=== PATIENT | female | born 1960 | race Asian ===

== ENCOUNTER 2018-11-15 14:28 | Outpatient (REF) | payer MEDICAID, SELFPAY ==
--- NOTE | 2018-11-15 13:00 | PAPFT_PTH ---
PATIENT: Inessa Cassidy LOC: [facility] U#:[id number] AGE/SX: 58/F ROOM: RE11/15/[address]: JAJA Brewer : 1960 BED: DIS: 11/15/2018 SPEC #: [id number] RECD: 11/15/18 17:39 STATUS: DIONI REKalee #: [id number] GIORGI: 11/15/18 13:[address]: Ana Borrego DEPT: [facility] Cytology RECD BY: Laine Carroll Tissues: 1 - CX/ENDOCX FOR PAP SMEARS Procedures: PAP THIN PREP/[facility]VM Screening Comments: [id number]
== END 2018-11-15 14:48 ==
LOC: LBN 14:28
PROVIDERS: PCP Nurse Practitioner Family; Visit Provider Nurse Practitioner Family
DX: Z12.4 Encounter for screening for malignant neoplasm of cervix (principal)
CPT/HCPCS: 88142

== ENCOUNTER 2018-11-22 01:28 | Outpatient (CLI) | payer MEDICAID, SELFPAY ==
--- NOTE | 2018-11-22 13:00 | DI.MAMMO_ITS ---
SYMPTOM/DIAGNOSIS: SCREENING, Z12.31 MAMMOGRAMS: Mammograms were interpreted according to the usual protocol including computer analysis with CAD system, tomosynthesis and C view imaging. Comparison is made with exams from [id number]. The breasts are composed of heterogeneously dense fibroglandular tissue, breast density, Category C. No suspicious masses or suspicious microcalcifications are seen. There has been no significant change. IMPRESSION: Category 1C, negative mammogram. Yearly screening mammography is recommended. [facility] ASSESSMENT OF FINDINGS: Negative. Category 1. Patient will receive a letter notifying them of these results. Bi-RADS category C. The breasts are heterogeneously dense, which may obscure small masses.
== END 2018-11-22 01:48 ==
PROVIDERS: PCP Nurse Practitioner Family; Visit Provider Nurse Practitioner Family
DX: Z12.31 Encounter for screening mammogram for malignant neoplasm of breast (principal)
CPT/HCPCS: 77063; 77067

== ENCOUNTER 2018-12-01 01:46 | Outpatient (CLI) | payer MEDICAID, SELFPAY ==
--- NOTE | 2018-12-01 13:42 | DI.CT_ITS ---
SYMPTOMS/DIAGNOSIS: F/U INCIDENTAL 1 CM NODULE, LEFT LOWER LOBE; NONSMOKER CHEST CT: A noncontrast enhanced examination was carried out. When compared with the previous examination dating back to 03/20/2017, again noted is a left lower lobe nodule, which is unchanged in size, measuring approximately 1 cm. No new nodules are identified. There is no infiltrate. There is no evidence of a pleural effusion. There is no evidence of hilar or mediastinal adenopathy. The heart is top limits of normal in size. There is no pericardial effusion. The unopacified aorta appears unremarkable. The visualized structures in the upper abdomen down to the level of the renal pedicles appear unremarkable. No significant bony abnormality is appreciated. SUMMARY: The left lower lobe nodule is stable when compared with the previous images, the most recent CT being 03/20/2017.
== END 2018-12-01 02:06 ==
PROVIDERS: PCP Nurse Practitioner Family; Visit Provider Nurse Practitioner
DX: R91.1 Solitary pulmonary nodule (principal)
CPT/HCPCS: 71250

== ENCOUNTER 2019-09-28 11:24 | Outpatient (REF) | payer MEDICAID, SELFPAY ==
[2019-09-28 19:52] LABS: ALT 35 U/L (14-59); AST 24 U/L (15-37); Alkaline Phosphatase 63 U/L (46-116); Anion Gap 8.5 mmol/L (3-11); BUN 10 mg/dL (7-18); Bilirubin, Total 0.7 mg/dL (0.2-1.0); C-Reactive Protein 0.09 mg/dL (0.0-0.3); CO2 25.5 mmol/L (21.0-32.0); CREATININE 0.61 mg/dL (0.55-1.02); Calcium 8.5 mg/dL (8.5-10.1); Chloride 105 mmol/L (98-107); Glucose 88 mg/dL (74-106); Potassium 4.2 mmol/L (3.5-5.1); Sodium 139 mmol/L (136-145); Total Protein 7.5 g/dL (6.4-8.2)
[2019-09-28 22:23] LABS: ESR 17 mm/hr (0-30)
== END 2019-09-28 11:44 ==
LOC: NCHCN 11:24
PROVIDERS: PCP Nurse Practitioner; Visit Provider Nurse Practitioner
DX: M25.50 Pain in unspecified joint (principal)
CPT/HCPCS: 80053; 85652; 86140

== ENCOUNTER 2019-10-18 00:59 | Outpatient (CLI) | payer MEDICAID, SELFPAY ==
--- NOTE | 2019-10-18 08:10 | DI.CT_ITS ---
EXAM: CT CHEST WO CLINICAL HISTORY: F/U LLL 1 CM NODULE, R91.8 TECHNIQUE: Noncontrast. COMPARISON: CHEST 2 VIEWS PA,LAT from 03/20/2017 FINDINGS: There has been no change in the circumscribed nodule at the left lower lobe. It measures near water density and did not show enhancement on previous exams. There has been no change in size when compare d with exam back to 2017. The findings are consistent with benign disease. No new nodules are seen. T here are no infiltrates, effusions or evidence of interstitial change or emphysematous change. The he art size is normal. There is no adenopathy. Visualized portions of the upper abdomen are unremarkable . IMPRESSION: Stable, benign, low-density nodule in the left lower lobe. No new abnormalities are seen.
== END 2019-10-18 01:19 ==
PROVIDERS: PCP Nurse Practitioner; Visit Provider Nurse Practitioner
DX: R91.1 Solitary pulmonary nodule (principal)
CPT/HCPCS: 71250

== ENCOUNTER 2019-12-05 14:08 | Outpatient (REF) | payer MEDICAID, SELFPAY ==
--- NOTE | 2019-12-05 13:30 | PAPFT_PTH ---
PATIENT: Inessa Cassidy LOC: [facility] U#:[id number] AGE/SX: 59/F ROOM: RE12/05/[address]: JAJA Brewer : 1960 BED: DIS: 12/05/2019 SPEC #: [id number] RECD: 12/05/19 17:42 STATUS: DIONI REKalee #: [id number] GIORGI: 12/05/19 13:[address]: Ana Borrego DEPT: [facility] Cytology RECD BY: Laine Carroll ENTERED: 12/05/19 17:42 SP TYPE: PAPFT OTHR DR: Keren Otero Tissues: 1 - CX/ENDOCX FOR PAP SMEARS Procedures: PAP THIN PREP/UVM Screening HPV DNA PROBE Comments: [id number]
== END 2019-12-05 14:28 ==
LOC: LBN 14:08
PROVIDERS: PCP Nurse Practitioner; Visit Provider Nurse Practitioner Family
DX: Z12.4 Encounter for screening for malignant neoplasm of cervix (principal); Z11.51 Encounter for screening for human papillomavirus (HPV)
CPT/HCPCS: 88142; 87624

== ENCOUNTER 2020-01-04 01:17 | Outpatient (CLI) | payer MEDICAID, SELFPAY ==
--- NOTE | 2020-01-04 12:11 | DI.MAMMO_ITS ---
EXAM: MAMMO SCREENING CLINICAL HISTORY: screening TECHNIQUE: Mammograms were interpreted according to the usual protocol including computer analysis w [employer] CAD system, tomosynthesis and C-view imaging. COMPARISON: 2009 through 2018 FINDINGS: The breasts are composed of heterogeneously dense fibroglandular densities, Breast Density category C . No suspicious masses or suspicious microcalcifications are seen. No skin thickening or abnormal axillary lymph nodes are seen. There has been no significant change from prior exams. IMPRESSION: BIRADS Category 1, negative mammogram. Yearly screening mammography is recommended. BREAST DENSITY: The mammogram demonstrates the patient's breast tissue is dense. Dense breast tissue is very common and is not abnormal but dense breast tissue can make it harder to find cancer on a ma mmogram. Also, dense breast tissue may increase breast cancer risk. This information about the result of the mammogram report was provided to the patient to raise their awareness. Use this report when y ou speak with the patient about their risks for breast cancer, which includes their family history. A t that time, you may recommend additional screening tests (Ultrasound or MRI) as they might be useful based on their risk. A negative radiographic report should not delay biopsy if a dominant or clinically suspicious mass is present. Up to ten percent of cancers are not identified on mammography. A negative report may reinforce clinical impression. Adenosis and dense breasts may obscure an underlying neoplasm. False positive reports average 6 to 10%.
== END 2020-01-04 01:37 ==
PROVIDERS: PCP Nurse Practitioner; Visit Provider Nurse Practitioner Family
DX: Z12.31 Encounter for screening mammogram for malignant neoplasm of breast (principal)
CPT/HCPCS: 77063; 77067

== ENCOUNTER 2020-03-28 10:11 | Outpatient (CLI) | payer MEDICAID, SELFPAY ==
--- NOTE | 2020-03-28 10:39 | DI.RAD_ITS ---
EXAM: XR SHOULDER RT COMPLETE 2+V CLINICAL HISTORY: PAIN IN RT SHOULDER M25.511. TECHNIQUE: 2D digital imaging was performed. COMPARISON: No exams were available for comparison FINDINGS: BONES: No acute fracture is present. No bony destructive lesion is seen. Mild spurring is seen at the lateral acromion. JOINTS: No dislocation present. SOFT TISSUE: Normal. IMPRESSION: No acute abnormality of the right shoulder. DATA REPOSITORY: RADIATION DOSE DELIVERED:
== END 2020-03-28 10:31 ==
PROVIDERS: PCP Nurse Practitioner; Visit Provider Nurse Practitioner
DX: M25.511 Pain in right shoulder (principal)
CPT/HCPCS: 73030

== ENCOUNTER 2020-10-16 20:30 | Outpatient (REF) | payer MEDICAID, SELFPAY ==
[2020-10-16 18:41] LABS: TSH (W/Ref FT4) 4.71 uIU/mL (0.36-3.74)
[2020-10-16 19:13] LABS: FREE T4 0.93 ng/dL (0.76-1.46)
== END 2020-10-16 20:50 ==
LOC: NCHCN 20:30
PROVIDERS: PCP Nurse Practitioner; Visit Provider Nurse Practitioner Family
DX: R94.6 Abnormal results of thyroid function studies (principal)
CPT/HCPCS: 84439; 84443

== ENCOUNTER 2020-12-06 13:23 | Outpatient (REF) | payer MEDICAID, SELFPAY ==
--- NOTE | 2020-12-06 13:00 | PAPFT_PTH ---
PATIENT: Inessa Cassidy LOC: [facility] U#:[id number] AGE/SX: 60/F ROOM: RE12/06/[address]: JAJA Brewer : 1960 BED: DIS: 12/06/2020 SPEC #: [id number] RECD: 12/06/20 16:25 STATUS: DIONI LOW #: [id number] GIORGI: 12/06/20 13:[address]: Ana Borrego DEPT: [facility] Cytology RECD BY: Laine Carroll ENTERED: 12/06/20 16:25 SP TYPE: PAPFT OTHR DR: Keren Otero Tissues: 1 - CX/ENDOCX FOR PAP SMEARS Procedures: PAP THIN PREP/UVM Screening HPV DNA PROBE Comments: [id number]
== END 2020-12-06 13:43 ==
LOC: LBN 13:23
PROVIDERS: PCP Nurse Practitioner; Visit Provider Nurse Practitioner Family
DX: Z12.4 Encounter for screening for malignant neoplasm of cervix (principal); Z11.51 Encounter for screening for human papillomavirus (HPV)
CPT/HCPCS: 88142; 87624

== ENCOUNTER 2020-12-11 01:01 | Outpatient (CLI) | payer MEDICAID, SELFPAY ==
--- NOTE | 2020-12-11 14:30 | DI.MRI_ITS ---
EXAM: MR UPPER JOINT RT WO CLINICAL HISTORY: Traumatic onset, failed nonop,bursitits, tendonitis, m75.51,m75.21. TECHNIQUE: Multiplanar multisequence MRI was performed. COMPARISON: CR XR SHOULDER RT COMPLETE 2+V from 03/28/2020 FINDINGS: BONES: There is no fracture or contusion pattern. Tiny subchondral cysts are seen in the posterior as pect of the humeral head. JOINTS: Mild degenerative changes are seen at the acromioclavicular joint. The glenohumeral joint is normal. TENDONS: Supraspinatus: There is thickening of the supraspinatus tendon consistent with tendinosis. There is hyperintense signal seen within the substance of the supraspinatus tendon and on its bursal surface c onsistent with a partial tear. Infraspinatus: Unremarkable. Subscapularis: There is thickening of the subscapularis tendon consistent with tendinosis. Teres Minor: Unremarkable. Biceps and Vista: Thickening of the biceps tendon is noted consistent with tendinosis. MUSCLES: Unremarkable. GLENOID LABRUM: Unremarkable on this noncontrast examination. SOFT TISSUES: Unremarkable. LIGAMENTS: The coracoclavicular ligament is unremarkable. OTHER: There is a small amount of fluid in the subacromial subdeltoid bursa. IMPRESSION: 1. Findings suggestive of a partial supraspinatus tendon tear. 2. Tendinosis of the subscapularis, biceps tendon and supraspinatus tendons. 3. Degenerative changes of the acromioclavicular joint. 4. Small amount of fluid in the subacromial subdeltoid bursa. DATA REPOSITORY:
== END 2020-12-11 01:02 | disposition home or self-care (01) ==
LOC: DI 01:02
PROVIDERS: PCP Nurse Practitioner; Visit Provider Student in an Organized Health Care Education/Training Program
DX: M75.51 Bursitis of right shoulder (principal); M19.011 Primary osteoarthritis, right shoulder; M25.411 Effusion, right shoulder
CPT/HCPCS: 73221

== ENCOUNTER 2021-01-07 02:12 | Outpatient (CLI) | payer MEDICAID, SELFPAY ==
--- NOTE | 2021-01-07 07:15 | DI.MAMMO_ITS ---
EXAM: MG MAMMO SCREENING CLINICAL HISTORY: screening,Z12.39 TECHNIQUE: Bilateral full field digital CC and MLO mammographic images were obtained with 3D tomosyn thesis and utilizing computer aided detection (CAD). COMPARISON: Available for comparison. FINDINGS: Masses/Architectural Distortion: None seen. Microcalcifications: No suspicious pleomorphic-type are seen. Skin Thickening/Nipple Retraction: None. IMPRESSION: 1. No significant interval change with no specific features of malignancy noted. 2. Unless there is more urgent need, screening mammography is recommended, as per [employer] guidelines. BI-RADS Category 1 - Negative Breast Density - Category C - Heterogeneously dense Breast density category C or D implies that the patient has dense breast tissue. Dense breast tissue is very common and is not abnormal but dense breast tissue can make it harder to find cancer on a ma mmogram. Also, dense breast tissue may increase their breast cancer risk. This information about the result of the mammogram report was provided to the patient to raise their awareness. Use this report when you speak with the patient about their risks for breast cancer, which includes their family hist ory. At that time, you may recommend for more screening tests (Ultrasound or MRI) as they might be us eful based on their risk. A negative radiographic report should not delay biopsy if a dominant or clinically suspicious mass is present. Up to ten percent of cancers are not identified on mammography. A negative report may reinforce clinical impression. Adenosis and dense breasts may obscure an underlying neoplasm. False positive reports average 6 to 10%. Patient will receive a letter notifying them of these results.
== END 2021-01-07 02:32 ==
PROVIDERS: PCP Nurse Practitioner; Visit Provider Nurse Practitioner Family
DX: Z12.31 Encounter for screening mammogram for malignant neoplasm of breast (principal)
CPT/HCPCS: 77063; 77067

== ENCOUNTER 2021-10-18 19:17 | Outpatient (REF) | payer MEDICAID, SELFPAY ==
[2021-10-18 19:27] LABS: Abs Immature Grans 0.01 10^3/uL (0.0-0.06); Absolute Basophil Count 0.04 10^3/uL (0.0-0.2); Absolute Eosinophil Count 0.11 10^3/uL (0.0-0.7); Absolute Lymphocyte Count 2.47 10^3/uL (1.2-3.4); Absolute Monocyte Count 0.59 10^3/uL (0.1-0.8); Absolute Neutrophil Count 3.77 10^3/uL (1.2-6.7); Basophils % 0.6; Eosinophils % 1.6; HCT 40.8 % (36.0-46.0); Immature Grans % 0.1; Lymphocytes % 35.3; MCH 29.4 pg (27.0-33.0); MCHC 31.9 % (32.0-36.0); MCV 92.3 fL (80-95); Monocytes % 8.4; Nucleated RBC 0 %; Platelet Count 380 10^3/uL (130-400); RBC 4.42 10^6/uL (3.93-5.22); RDW 12.5 % (11.7-14.6); RDW-SD 42.6 fL; WBC 6.99 10^3/uL (4.4-10.8)
[2021-10-18 19:43] LABS: CREATININE 0.7 mg/dL (0.55-1.02); TSH (W/Ref FT4) 2.24 uIU/mL (0.36-3.74)
[2021-10-18 20:12] LABS: Hemoglobin A1C 5.4 % (<5.7)
[2021-10-21 10:12] LABS: Hepatitis B Surface Ag Negative (Negative)
[2021-10-21 10:37] LABS: Hepatitis C Ab w Rflx HCV PCR Negative (Negative)
== END 2021-10-18 19:18 | disposition home or self-care (01) ==
LOC: NCHCN 19:17
PROVIDERS: PCP Nurse Practitioner; Visit Provider Family Medicine
DX: R94.6 Abnormal results of thyroid function studies (principal); Z00.00 Encounter for general adult medical examination without abnormal findings; R07.81 Pleurodynia; Z11.59 Encounter for screening for other viral diseases
CPT/HCPCS: 86803; 87340; 82565; 83036; 84443; 85025

== ENCOUNTER 2022-01-07 00:39 | Outpatient (CLI) | payer MEDICAID, SELFPAY ==
--- NOTE | 2022-01-07 14:26 | DI.CT_ITS ---
Exam(s) CT CHEST WO EXAM: CT CHEST WO CLINICAL HISTORY: PLEURITIC CHEST PAIN, R07.81,F/U LUNG NODULE,R91.8. TECHNIQUE: Imaging protocol: Axial computed tomography images were obtained and coronal and sagittal reformatted images were created and reviewed. COMPARISON: CT CT CHEST WO from 10/18/2019 FINDINGS: Tracheobronchial tree: Patent where visualized. Pulmonary parenchyma: No focal consolidation. There is a stable 1 cm hypodense nodule in the left lo wer lobe. No new pulmonary nodules are present. No architectural distortion. Mediastinum and Marzena: No dominant adenopathy or fluid collection. The esophagus is unremarkable. Thyroid gland: Unremarkable. Pleura: No effusion or pneumothorax. Heart: The heart is not dilated. No coronary artery calcifications are seen. No pericardial effusion. Aorta: Thoracic aorta non-dilated. Upper abdomen: Unremarkable. Lymph nodes: Within normal limits. Soft tissues: Unremarkable. Bones:Within normal limits for the patient's age. IMPRESSION: Stable 1 cm left lower lobe nodule. This is unchanged dating back to 03/20/2017. RADIATION DOSE DELIVERED: 515.19mGy.cm Total DLP 515.19mGy.cm Total DLP DATA REPOSITORY: All CT scans at this facility are submitted to the National Radiology Data Registry (NRDR) Dose Index Registry (DIR) with the [employer] (A[employer]). RADIATION OPTIMIZATION: All CT scans at this facility use at least one of these dose optimization te chniques: automated exposure control; mA and/or kV adjustment per patient size (includes targeted exa ms where dose is matched to clinical indication); or iterative reconstruction.
== END 2022-01-07 00:59 ==
PROVIDERS: PCP Nurse Practitioner; Visit Provider Family Medicine
DX: R07.81 Pleurodynia (principal); R91.1 Solitary pulmonary nodule
CPT/HCPCS: 71250

== ENCOUNTER 2022-07-17 22:30 | Outpatient (REF) | payer MEDICAID, SELFPAY | END 2022-07-17 22:31 | disposition home or self-care (01) | LOC: LBN 22:30 | PROVIDERS: PCP Nurse Practitioner; Visit Provider Nurse Practitioner Family | DX: U07.1 COVID-19 (principal) | CPT/HCPCS: 87086 ==

== ENCOUNTER → 2022-09-03 02:14 | Outpatient (CLI) | payer MEDICAID, SELFPAY ==
--- NOTE | 2022-09-03 12:16 | DI.MAMMO_ITS ---
Exam(s) MAMMO SCREENING EXAM: MAMMO SCREENING CLINICAL HISTORY: screening,Z12.39 TECHNIQUE: Mammograms were interpreted according to the usual protocol including computer analysis w [employer] CAD system, tomosynthesis and C-view imaging. COMPARISON: FINDINGS: Breasts are extremely dense. No dominant mass or clumped microcalcification is identified in either breast. Current examination is compared with previous examinations including January 2021 and there is increased prominence of a focal area of asymmetric density or nodularity projected in the retroareol ar portion of the right breast on CC view only. Additional mammographic views of this area are reque sted to include CC spot compression views of the right breast. No other significant change seen. IMPRESSION: Additional mammographic views of the right breast requested as described above. Breast ultrasound re commended as well. BI-RADS Category 0 - Assessment Incomplete: Need additional imaging evaluation Breast Density - Category D - Extremely dense
== END ==
PROVIDERS: PCP Nurse Practitioner; Visit Provider Family Medicine
DX: Z12.31 Encounter for screening mammogram for malignant neoplasm of breast (principal); R92.8 Other abnormal and inconclusive findings on diagnostic imaging of breast
CPT/HCPCS: 77063; 77067

== ENCOUNTER → 2022-09-18 02:33 | Outpatient (CLI) | payer MEDICAID, SELFPAY ==
--- NOTE | 2022-09-18 | DI.US_ITS ---
Exam(s) MG MAMMO SCREEN CALL BACK UNI US BREAST RT LIMITED EXAM: MG MAMMO SCREEN CALL BACK UNI and U/S breast RT limited CLINICAL HISTORY: F/U MAMMO, PROMINENCE OF ASYMMETRIC DENSITY,NODULARITY,R92.8. TECHNIQUE: Craniocaudal and mediolateral oblique Full Field Digital Mammography views of the right b reast with Computer Aided Diagnosis followed by Tomosynthesis and right breast ultrasound. COMPARISON: Comparison is made with prior examinations. FINDINGS: Mammography/Tomosynthesis: Masses/Architectural Distortion: None seen. Microcalcifictions: No suspicious pleomorphic-type are seen. Skin Thickening/Nipple Retraction: None. Limited right breast US: The upper inner and lower inner quadrants were evaluated sonographically. Echotexture: Normal appearance of the glandular tissue. Shadowing: No suspicious foci. Cyst: None. Solid lesions: None seen. Ductal dilation: None. IMPRESSION: 1. No evidence of malignancy is noted. 2. A six-month follow-up right mammogram is recommended for re-evaluation. 3. The findings were discussed with the patient on the date of the examination. BI-RADS Category 3 - 6 month - Probably Benign Finding: Recommend follow-up imaging in 6 months Breast Density - Category D - Extremely dense Breast density Category C or D implies that the patient has dense breast tissue. Dense breast tissue can make it harder to find cancer on a mammogram. Dense breast tissue is also associated with an incr eased risk of breast cancer. This information about the result of the mammogram report was provided to the patient to raise their awareness. Use this report when you speak with the patient about their risks for breast cancer, which includes their family history. At that time, you may recommend additional screening tests (Ultrasoun d or MRI) as these tests may add significant information. A negative radiographic report should not delay biopsy if a dominant or clinically suspicious mass is present. Up to ten percent of cancers are not identified on mammography. A negative report may reinforce clinical impression. Adenosis and dense breasts may obscure an underlying neoplasm. False positive reports average 6 to 10%. Patient will receive a letter notifying them of these results.
== END ==
PROVIDERS: PCP Physician Assistant Medical; Visit Provider Family Medicine
DX: Z12.31 Encounter for screening mammogram for malignant neoplasm of breast (principal); R92.8 Other abnormal and inconclusive findings on diagnostic imaging of breast
CPT/HCPCS: 76642; 77063; 77067

== ENCOUNTER 2022-11-26 16:55 | Emergency (ER) | payer MEDICAID, SELFPAY ==
--- NOTE | 2022-11-26 16:45 | RT.EKG_ITS ---
APPROVED REPORT Exam: Resting ECG Reason for Exam: CHEST PAIN Patient Location: E HR:61 bpm ECG Measurements Heart Rate 61 AXIS [place] 186 P 67 QRSd 91 QRS 14 QT 397 T -3 QTc 400 Conclusion Sinus rhythm...normal P axis, V-rate 60- 99 Low voltage, precordial leads...precordial leads <1.0mV normal sinus rhythm, normal axis, normal intervals, non ischemic
[2022-11-26 17:02] VITALS: BP 140/57; PULSE 67; RESP 18; TEMP 36.7; O2SAT 98
--- NOTE | 2022-11-26 17:15 | DI.RAD_ITS ---
Exam(s) XR CHEST 2V PA LATERAL EXAM: XR CHEST 2V PA LATERAL CLINICAL HISTORY: chest pain. TECHNIQUE: 2D digital imaging was performed. COMPARISON: CR CHEST 2 VIEWS PA,LAT from 03/20/2017 FINDINGS: 2 views: Heart size is normal. The mediastinum is not widened. Lungs are clear. No infiltrates nor pleural effusions. IMPRESSION: No acute pulmonary findings. DATA REPOSITORY: RADIATION DOSE DELIVERED:
[2022-11-26 17:48] LABS: Abs Immature Grans 0.02 10^3/uL (0.0-0.06); Absolute Basophil Count 0.04 10^3/uL (0.0-0.2); Absolute Lymphocyte Count 2.39 10^3/uL (1.2-3.4); Absolute Neutrophil Count 4.74 10^3/uL (1.2-6.7); Basophils % 0.5; Eosinophils % 1.3; HCT 40.3 % (36.0-46.0); HGB 13.6 g/dL (11.2-15.7); Immature Grans % 0.3; Lymphocytes % 30.3; MCH 30.9 pg (27.0-33.0); MCHC 33.7 % (32.0-36.0); MCV 92 fL (80-95); MPV 9.5 fL (8.0-11.0); Monocytes % 7.6; Platelet Count 336 10^3/uL (130-400); RDW 12.2 % (11.7-14.6); WBC 7.89 10^3/uL (4.4-10.8)
[2022-11-26 18:13] LABS: ALT 26 U/L (14-59); AST 23 U/L (15-37); Albumin 4.5 g/dL (3.4-5.0); Alkaline Phosphatase 66 U/L (46-116); Anion Gap 4.7 mmol/L (3-11); BUN 23 mg/dL (7-18); Bilirubin, Total 0.5 mg/dL (0.2-1.0); CO2 28.3 mmol/L (21.0-32.0); CREATININE 0.8 mg/dL (0.55-1.02); Calcium 9.2 mg/dL (8.5-10.1); Chloride 102 mmol/L (98-107); Glucose 125 mg/dL (74-106); Lipase 123 U/L (73-393); Potassium 3.3 mmol/L (3.5-5.1); Sodium 135 mmol/L (136-145); Total Protein 8.4 g/dL (6.4-8.2); Troponin I < 50 ng/L (<or=60)
[2022-11-26 18:50] LABS: D-Dimer 259 ng/mlFEU (<500)
--- NOTE | 2022-11-26 18:52 | DI.VRAD_ITS ---
PROCEDURE INFORMATION: Exam: XR Chest Exam date and time: 11/26/2022 6:19 PM Age: 62 years old Clinical indication: Other: Chest pain TECHNIQUE: Imaging protocol: Radiologic exam of the chest. Views: 2 views. COMPARISON: CT CHEST WO 01/07/2022 2:23 PM FINDINGS: Lungs: Unremarkable. No consolidation. Pleural spaces: Unremarkable. No pleural effusion. No pneumothorax. Heart/Mediastinum: Unremarkable. No cardiomegaly. Bones/joints: Unremarkable. IMPRESSION: No acute findings. Dictated and Authenticated by: Juan Ventura MD. Ordering:MARTIN Jang MD
[2022-11-26 19:14] VITALS: BP 122/72; PULSE 62; RESP 16; O2SAT 98
[2022-11-26] MEDS: Cyclobenzaprine 10 MG TAB 5 MG PO (20:20)
[2022-11-26] MEDS: Ketorolac 15 MG/ML VIAL IVP (20:21)
--- NOTE | 2022-11-26 22:07 | ED.GENADUL_ITS ---
Discharge Plan Disposition Patient Disposition: Home Condition: Stable Discharge Details Clinical Impression: Atypical chest pain Primary Care Provider: Sindhu Grayson ED Provider: Laine Sheridan Home Meds and New Rx's Prescriptions: New cyclobenzaprine 5 mg tablet 5 mg PO QHS PRNQty: 14 0RF methylprednisolone [Medrol (Jc)] 4 mg tablets,dose pack See Rx Instructions .ROUTE .COMPLEX Qty: 21 0RF Rx Instructions: orally per package directions Continued Daily Multiple 1 EACH tablet 1 tab-cap PO DAILY Fish Oil 1 cap PO DAILY Discharge Instructions Instructions: Chest Pain (ED) Additional Instructions: Please take the prescribed medications as instructed Follow-up with your primary care physician You have an appointment tomorrow, let them know you are still having discomfort You may take Tylenol 650 mg every 6 hours, take the Medrol Dosepak to starting tomorrow, and you may take the Flexeril at night as needed for discomfort Please return earlier should you have new or worsening complaints Referrals: Sindhu Grayson [Primary Care Provider] - 1 day Discharge Data Discharge Date/Time-TO BE ENTERED AT DEPARTURE: 11/26/22 20:37 Medical Decision Making 62-year-old female presents for acute exacerbation of chronic chest pain for which she has been evaluated on several occasions in the past States it is worsening and wakes her from sleep. Denies history of hypertension or hyperlipidemia, tobacco use, or alcohol use Describes the pain is worse when she is moving or lifting water really doing any sort of activity that involves the use of her chest wall muscles Denies any exacerbation with food or fluids Denies any hemoptysis or upper respiratory symptoms Chest x-ray does not show evidence of acute abnormality Diagnostic blood work is reassuring, negative troponin, negative D-dimer, EKG without acute abnormality Reproducible chest wall exam Will place patient on Medrol Dosepak and Flexeril Given Toradol and Flexeril prior to discharge home Will refer back to primary care physician Low suspicion for cardiac etiology of patient's complaints and the negative D- dimer with suspicion for pulmonary embolism clinically especially with out hypoxia, tachypnea, or tachycardia Follow-up appointment actually is scheduled with her primary care physician tomorrow morning and she will keep this appointment return should she have new or worsening complaints Medical Records Medical records reviewed: Yes I reviewed the patient's medical records. Lab Data Lab results reviewed: Yes I reviewed the patient's lab results. HPI General Date/Time Provider Initiated Documentation: 11/26/22 17:05 . HPI Narrative: This 62-year-old female presents with report of chest pain since August. She states it started in close proximity to receiving her COVID-vaccine. She states largely its exacerbated with moving her arms and taking deep breaths. She states she is also had some episodes of palpitations. She denies any fever or chills. She denies any shortness of breath. Denies any calf pain or swelling. Pain is worsening per patient. States its been waking her up at night. She is not been attempting any flab-muq-enrizbo medications. Related Data Home Medications Medication Instructions Recorded Confirmed Fish Oil 1 cap PO DAILY 02/22/13 11/26/22 multivitamin-ferrous 1 tab-cap PO DAILY 02/22/13 11/26/22 fumarate-folic acid 18 mg-400 mcg tablet (Daily Multiple) cyclobenzaprine 5 mg tablet 5 mg PO QHS PRN #14 tabs 11/26/22 methylprednisolone 4 mg tablets in See Rx Instructions PO .COMPLEX 11/26/22 a dose pack (Medrol (Jc)) #21 dose pk Previous Rx's Medication Instructions Recorded cyclobenzaprine 5 mg tablet 5 mg PO QHS PRN #14 tabs 11/26/22 methylprednisolone 4 mg tablets in See Rx Instructions PO .COMPLEX 11/26/22 a dose pack (Medrol (Jc)) #21 dose pk Allergies Allergy/AdvReac Type Severity Reaction Status Date / Time Peaches/Apples Allergy Mild Itchy eyes Uncoded 11/26/22 17:09 General Stated Complaint: Chest Pain VALERIO: 3 Review of Systems All systems reviewed & are unremarkable except as noted in HPI and below PFSH All Active Problems (Updated 11/26/22 @ 20:19 by VAIBHAV Peters) Atypical chest pain (Acute) Rotator cuff tear, right (Acute) Arthritis of right acromioclavicular joint (Acute) Bursitis of shoulder, right (Acute) Tendonitis of long head of biceps brachii of right shoulder (Acute) Personal history of cervical dysplasia (Acute 09/18/15) 2002 DINORA II Medical History Abnormal Pap smear of cervix (~2002) DINORA II Surgical History Colonoscopy - MAC (11/30/17) Social History Smoking/Tobacco Use Status: Never Smoking risk assessment performed?: Yes Alcohol Intake: never Drug use: Never Substance use type: does not use Current gender identity: female Do you feel safe in your relationship?: Yes History History 5 Para 4 Hx # Term Pregnancies Multiple births Hx # Pregnancies Ectopic pregnancies AB induced Hx Number of Living Children AB spontaneous Exam Const General: cooperative, comfortable and no acute distress Orientation: alert and oriented x3 HENMT Head: normal to inspection Mouth: oral mucosae normal Eyes Pupils: PERRL EOM: EOM intact bilaterally Chest Other: Reproducible chest wall tenderness, no rebound or guarding Resp Effort & Inspection: normal respiratory effort Auscultation: clear to auscultation bilaterally Cardio Rate: regular rate Rhythm: regular rhythm GI Inspection: normal to inspection Other: No CVA tenderness, no abdominal bruit or pulsatile mass Skin General skin exam: no rashes or lesions noted Neuro General: patient alert and patient oriented x3 Course Vital Signs Vital signs: Vital Signs Temperature 36.7 C 11/26/22 17:02 Pulse 67 11/26/22 17:02 Respiratory Rate 18 11/26/22 17:02 Blood Pressure 140/57 L 11/26/22 17:02 Pulse Oximetry 98 11/26/22 17:02 Temperature 36.7 C 11/26/22 17:02 Temperature Source Temporal Artery Scan 11/26/22 17:02 Pulse 62 11/26/22 19:14 Respiratory Rate 16 11/26/22 19:14 Respiratory Effort Non-Labored 11/26/22 17:13 Respiratory Depth Normal 11/26/22 17:13 Respiratory Pattern Normal 11/26/22 17:13 Blood Pressure 122/72 11/26/22 19:14 Blood Pressure Position Sitting 11/26/22 17:02 Pulse Oximetry 98 11/26/22 19:14 Oxygen Delivery Method Room Air 11/26/22 19:14 Oxygen Flow Rate 0 11/26/22 19:14 Lab/Test Results Lab/Test Results: Laboratory Tests Range/Units 11/26/22 11/26/22 11/26/22 17:30 17:30 18:13 WBC (4.4-10.8) 10^3/uL 7.89 RBC (3.93-5.22) 10^6/uL 4.40 Hgb (11.2-15.7) g/dL 13.6 Hct (36.0-46.0) % 40.3 MCV (80-95) fL 92 MCH (27.0-33.0) pg 30.9 MCHC (32.0-36.0) % 33.7 RDW (11.7-14.6) % 12.2 Plt Count (130-400) 10^3/uL 336 MPV (8.0-11.0) fL 9.5 Immature Gran % 0.3 Neutrophils % 60.0 Lymphocytes % 30.3 Monocytes % 7.6 Eosinophils % 1.3 Basophils % 0.5 Nucleated RBC % (0.0-0.3) % 0.0 Absolute Neutrophils (1.2-6.7) 10^3/uL 4.74 Absolute Lymphocytes (1.2-3.4) 10^3/uL 2.39 Absolute Monocytes (0.1-0.8) 10^3/uL 0.60 Absolute Eosinophils (0.0-0.7) 10^3/uL 0.10 Absolute Basophils (0.0-0.2) 10^3/uL 0.04 D-Dimer (<500) ng/mlFEU 259 Sodium (136-145) mmol/L 135 L Potassium (3.5-5.1) mmol/L 3.3 L Chloride (98-107) mmol/L 102 Carbon Dioxide (21.0-32.0) mmol/L 28.3 Anion Gap (3-11) mmol/L 4.7 BUN (7-18) mg/dL 23 H Creatinine (0.55-1.02) mg/dL 0.8 Est GFR (CKD-EPI 2020) (mL/min/1.73m2) 84.30 Glucose (74-106) mg/dL 125 H Calcium (8.5-10.1) mg/dL 9.2 Total Bilirubin (0.2-1.0) mg/dL 0.5 AST (15-37) U/L 23 ALT (14-59) U/L 26 Alkaline Phosphatase (46-116) U/L 66 Troponin I (<or=60) ng/L < 50 Total Protein (6.4-8.2) g/dL 8.4 H Albumin (3.4-5.0) g/dL 4.5 Lipase (73-393) U/L 123
== END 2022-11-26 20:37 | disposition home or self-care (01) ==
PROVIDERS: Emergency Provider Physician Assistant; PCP Nurse Practitioner Family
DX: R07.89 Other chest pain (principal)
CPT/HCPCS: 36415; 80053; 83690; 93005; 96374; 99284; 71046; 84484; 85025; 85379; 93010; 99285; J1885

== ENCOUNTER → 2023-09-21 00:48 | Outpatient (CLI) | payer MEDICAID, SELFPAY ==
--- NOTE | 2023-09-21 | DI.MAMMO_ITS ---
Exam(s) US BREAST RT COMPLETE MG MAMMO DIAGNOSTIC BI EXAM: MG MAMMO DIAGNOSTIC BI AND COMPLETE RIGHT BREAST ULTRASOUND CLINICAL HISTORY: DIAGNOSTIC, F/U ABNL MAMMO, R92.8. TECHNIQUE: Both CC and MLO views both breast mammographic images were obtained with 3D tomosynthesis technique and utilizing computer aided detection (CAD). Performed additional spot compression CC vi ew of the right breast. Complete right breast ultrasound was performed including all 4 quadrants as well as the retroareolar region and the right axilla. COMPARISON: Prior mammograms were reviewed, the most recent being September 2022. Prior ultrasound o f September 2022 also reviewed.. FINDINGS: DIAGNOSTIC BILATERAL MAMMOGRAM: The fibroglandular tissue pattern is again noted be moderately dense in both breast. There are no new focal findings seen in the left breast. In the right breast on the CC 3D view there is a dumbbell-shaped asymmetric nodular density measuring 9 x 4 mm located 2 cm in from the nipple, slightly medial of center. We performed an additional spot compression view of this region which lynda dered this finding less concerning. There are no malignant-appearing microcalcification groups in th is region or elsewhere either breast. In the opposite-left breast there is a small benign-appearing nodule noted posteriorly on the MLO vie w which is unchanged from prior mammograms probably benign intramammary lymph node. There is no new architectural distortion or skin thickening-traction. COMPLETE RIGHT BREAST ULTRASOUND: No evidence solid or significant cystic lesions in all 4 quadrants of the right breast. This is furt her evidence that the dumbbell-shaped nodular density seen on today's mammogram (and which compresses out with additional spot compression CC view) is most probably just benign asymmetric tissue as oppo sed to a true nodule. Scanning of the right axilla is negative for adenopathy. IMPRESSION: 1. Benign findings. No evidence of malignancy. Appropriate follow-up is right breast mammogram in 6 months.. The patient was informed of the findings and follow-up recommendations prior to leaving the [facility] today. BI-RADS Category 3 - 6 month - Probably Benign Finding: Recommend follow-up mammography in 6 months Breast Density - Category C - Heterogeneously dense Breast density Category C or D implies that the patient has dense breast tissue. Dense breast tissue can make it harder to find cancer on a mammogram. Dense breast tissue is also associated with an incr eased risk of breast cancer. This information about the result of the mammogram report was provided to the patient to raise their awareness. Use this report when you speak with the patient about their risks for breast cancer, which includes their family history. At that time, you may recommend additional screening tests (Ultrasoun d or MRI) as these tests may add significant information. A negative radiographic report should not delay biopsy if a dominant or clinically suspicious mass is present. Up to ten percent of cancers are not identified on mammography. A negative report may reinforce clinical impression. Adenosis and dense breasts may obscure an underlying neoplasm. False positive reports average 6 to 10%. Patient will receive a letter notifying them of these results.
== END ==
PROVIDERS: PCP Nurse Practitioner Family; Visit Provider Nurse Practitioner Family
DX: Z12.31 Encounter for screening mammogram for malignant neoplasm of breast (principal); R92.8 Other abnormal and inconclusive findings on diagnostic imaging of breast
CPT/HCPCS: 76642; 77062; 77066; G0279

== ENCOUNTER → 2023-10-12 13:52 | Outpatient (CLI) | payer MEDICAID, SELFPAY ==
--- NOTE | 2023-10-12 14:03 | DI.RAD_ITS ---
Exam(s) XR KNEE RT 3V AP,LAT,WHITNEY EXAM: XR KNEE RT 3V AP,LAT,WHITNEY CLINICAL HISTORY: PAIN RT KNEE JOINT, M25.561. TECHNIQUE: 2D digital imaging was performed. Three views. COMPARISON: CR LEFT KNEE 3 VIEW COMPLETE from 09/20/2014 FINDINGS: BONES: No acute fracture is present. No bony destructive lesion is seen. Enthesophyte upper pole of the patella. JOINTS: The knee is normally aligned. No joint effusion is seen. SOFT TISSUE: Small anterior soft tissue calcifications. Calcification in a adjacent to medial femora l condyle. IMPRESSION: No acute abnormality. DATA REPOSITORY: RADIATION DOSE DELIVERED:
== END ==
PROVIDERS: PCP Nurse Practitioner Family; Visit Provider Nurse Practitioner Family
DX: M25.561 Pain in right knee (principal)
CPT/HCPCS: 73562

== ENCOUNTER 2023-10-12 14:27 | Outpatient (REF) | payer MEDICAID, SELFPAY ==
[2023-10-12 14:51] LABS: Abs Immature Grans 0.02 10^3/uL (0.0-0.06); Absolute Basophil Count 0.06 10^3/uL (0.0-0.2); Absolute Eosinophil Count 0.39 10^3/uL (0.0-0.7); Absolute Lymphocyte Count 2.27 10^3/uL (1.2-3.4); Absolute Monocyte Count 0.83 10^3/uL (0.1-0.8); Absolute Neutrophil Count 4.25 10^3/uL (1.2-6.7); Basophils % 0.8; HCT 40.7 % (36.0-46.0); HGB 13.5 g/dL (11.2-15.7); Immature Grans % 0.3; MCH 30.1 pg (27.0-33.0); MCHC 33.2 % (32.0-36.0); MCV 91 fL (80-95); MPV 9.6 fL (8.0-11.0); Monocytes % 10.6; Neutrophils % 54.3; Platelet Count 350 10^3/uL (130-400); RBC 4.49 10^6/uL (3.93-5.22); RDW 12.3 % (11.7-14.6); RDW-SD 40.8 fL; WBC 7.82 10^3/uL (4.4-10.8)
[2023-10-12 15:13] LABS: ALT 20 U/L (14-59); AST 22 U/L (15-37); Albumin 3.9 g/dL (3.4-5.0); Alkaline Phosphatase 68 U/L (46-116); BUN 14 mg/dL (7-18); Bilirubin, Total 0.5 mg/dL (0.2-1.0); CREATININE 0.8 mg/dL (0.55-1.02); Calcium 9.6 mg/dL (8.5-10.1); Chloride 104 mmol/L (98-107); Estimated GFR 83.78 (mL/min/1.73m2); Glucose 95 mg/dL (74-106); Potassium 4.1 mmol/L (3.5-5.1); Sodium 140 mmol/L (136-145); Total Protein 8.3 g/dL (6.4-8.2)
== END 2023-10-12 14:28 | disposition home or self-care (01) ==
LOC: NCHCN 14:27
PROVIDERS: PCP Nurse Practitioner Family; Visit Provider Nurse Practitioner Family
DX: R07.2 Precordial pain (principal); R05.3 Chronic cough
CPT/HCPCS: 80053; 85025

== ENCOUNTER 2024-01-12 15:25 | Outpatient (REF) | payer MEDICAID, SELFPAY ==
--- NOTE | 2024-01-12 14:40 | PAPFT_PTH ---
PATIENT: Inessa Cassidy LOC: [facility] U#:[id number] AGE/SX: 63/F ROOM: RE01/12/[address]: Keren Martinez DO : 1960 BED: DIS: 01/12/2024 SPEC #: [id number] RECD: 01/13/24 13:12 STATUS: DIONI REQ #: [id number] GIORGI: 01/12/24 14:[address]: Keren Martinez DEPT: [facility] Cytology RECD BY: Laine Carroll ENTERED: 01/13/24 13:12 SP TYPE: PAPFT OTHR DR: SAULO KATZ Tissues: 1 - CX/ENDOCX FOR PAP SMEARS Procedures: PAP THIN PREP/UVM Screening HPV DNA PROBE Comments: [id number]
== END 2024-01-12 15:26 | disposition home or self-care (01) ==
LOC: LBN 15:25
PROVIDERS: PCP Nurse Practitioner Family; Visit Provider Obstetrics & Gynecology
DX: Z12.4 Encounter for screening for malignant neoplasm of cervix (principal); Z11.51 Encounter for screening for human papillomavirus (HPV); Z87.410 Personal history of cervical dysplasia
CPT/HCPCS: 88142; 87624

== ENCOUNTER → 2024-03-22 03:41 | Outpatient (CLI) | payer MEDICAID, SELFPAY ==
--- NOTE | 2024-03-22 | DI.MAMMO_ITS ---
Exam(s) MG MAMMO DIAGNOSTIC UNI EXAM: MAMMO DIAGNOSTIC UNI-RIGHT CLINICAL HISTORY: R92.8 6 mo f/u abn mammo, 9x4 mm nodular density 2cm from nipple. TECHNIQUE: Unilateral RIGHT BREAST CC AND MLO mammographic images were obtained with 3D tomosynthesi s technique and utilizing computer aided detection (CAD). COMPARISON: Prior mammograms were reviewed, the most recent being September 2023. Ultrasound at that time was also reviewed.. FINDINGS: The fibroglandular tissue pattern in the right breast is again noted be moderately dense. There are no new spiculated masses nor malignant-appearing microcalcification groups in the right adan ast. The previously described dumbbell-shaped density evident on the prior mammogram CC view is less evide nt on the present mammogram. Prior ultrasound was negative and does not need to be repeated. IMPRESSION: No radiographic evidence of malignancy in the right breast. Appropriate follow-up is to give this patient on her yearly mammogram schedule, with earlier imaging if a self detected breast change is noted.. The patient was informed of the findings and follow-up recommendations by myself prior to leaving the department today. BI-RADS Category 2 - Benign Findings Breast Density - Category C - Heterogeneously dense Breast density Category C or D implies that the patient has dense breast tissue. Dense breast tissue can make it harder to find cancer on a mammogram. Dense breast tissue is also associated with an incr eased risk of breast cancer. This information about the result of the mammogram report was provided to the patient to raise their awareness. Use this report when you speak with the patient about their risks for breast cancer, which includes their family history. At that time, you may recommend additional screening tests (Ultrasoun d or MRI) as these tests may add significant information. A negative radiographic report should not delay biopsy if a dominant or clinically suspicious mass is present. Up to ten percent of cancers are not identified on mammography. A negative report may reinforce clinical impression. Adenosis and dense breasts may obscure an underlying neoplasm. False positive reports average 6 to 10%. Patient will receive a letter notifying them of these results.
== END ==
PROVIDERS: PCP Nurse Practitioner Family; Visit Provider Nurse Practitioner Family
DX: Z12.31 Encounter for screening mammogram for malignant neoplasm of breast (principal); R92.8 Other abnormal and inconclusive findings on diagnostic imaging of breast
CPT/HCPCS: 77061; 77065; G0279

== ENCOUNTER 2025-03-21 01:53 | Outpatient (CLI) | payer MEDICAID, SELFPAY ==
--- NOTE | 2025-03-21 | DI.MAMMO_ITS ---
Exam(s) MAMMO SCREENING EXAM: MAMMO SCREENING CLINICAL HISTORY: SCREENING, Z12.39 TECHNIQUE: Bilateral full field digital CC and MLO mammographic images were obtained with 3D tomosyn thesis and utilizing computer aided detection (CAD). COMPARISON: Available for comparison. FINDINGS: Masses/Architectural Distortion: No suspicious masses or areas of architectural distortion are presen t. Microcalcifications: No suspicious pleomorphic-type are seen. Skin Thickening/Nipple Retraction: None. IMPRESSION: 1. No significant interval change with no specific features of malignancy noted. 2. Unless there is more urgent need, screening mammography is recommended, as per [employer] guidelines. BI-RADS Category 1 - Negative Breast Density - Category C - The breast are heterogeneously dense, which may obscure small masses. Breast density Category C or D implies that the patient has dense breast tissue. Dense breast tissue can make it harder to find cancer on a mammogram. Dense breast tissue is also associated with an incr eased risk of breast cancer. This information about the result of the mammogram report was provided to the patient to raise their awareness. Use this report when you speak with the patient about their risks for breast cancer, which includes their family history. At that time, you may recommend additional screening tests (Ultrasoun d or MRI) as these tests may add significant information. A negative radiographic report should not delay biopsy if a dominant or clinically suspicious mass is present. Up to ten percent of cancers are not identified on mammography. A negative report may reinforce clinical impression. Adenosis and dense breasts may obscure an underlying neoplasm. False positive reports average 6 to 10%. Patient will receive a letter notifying them of these results.
== END 2025-03-21 02:13 ==
LOC: DI 01:53
PROVIDERS: Visit Provider Obstetrics & Gynecology
DX: Z12.31 Encounter for screening mammogram for malignant neoplasm of breast (principal); R92.333 Mammographic heterogeneous density, bilateral breasts
CPT/HCPCS: 77063; 77067

== ENCOUNTER 2025-07-28 13:38 | Outpatient (REF) | payer MEDICAID, SELFPAY ==
[2025-07-28 16:38] LABS: HCT 41.4 % (36.0-46.0); HGB 13.9 g/dL (11.2-15.7); MCH 30.8 pg (27.0-33.0); MCHC 33.6 % (32.0-36.0); MCV 92 fL (80-95); MPV 10.1 fL (8.0-11.0); Platelet Count 342 10^3/uL (130-400); RBC 4.52 10^6/uL (3.93-5.22); RDW 12.5 % (11.7-14.6); RDW-SD 41.7 fL; WBC 8.18 10^3/uL (4.4-10.8)
[2025-07-28 16:55] LABS: Hemoglobin A1C 5.1 % (<5.7)
[2025-07-28 16:57] LABS: ALT 21 U/L (14-59); AST 19 U/L (15-37); Albumin 4.1 g/dL (3.4-5.0); Alkaline Phosphatase 69 U/L (46-116); Anion Gap 7.5 mmol/L (3-11); BUN 17 mg/dL (7-18); Bilirubin, Total 0.6 mg/dL (0.2-1.0); CO2 30.5 mmol/L (21.0-32.0); Calcium 9.8 mg/dL (8.5-10.1); Calculated LDL 120 mg/dL (<100); Chloride 103 mmol/L (98-107); Cholesterol 197 mg/dL (<200); Estimated GFR 97.12 (mL/min/1.73m2); Glucose 93 mg/dL (74-106); HDL Cholesterol 57 mg/dL (>or=50); Potassium 4.4 mmol/L (3.5-5.1); Sodium 141 mmol/L (136-145); Total Protein 8.0 g/dL (6.4-8.2); Triglyceride 102 mg/dL (<150)
== END 2025-07-28 13:39 | disposition home or self-care (01) ==
LOC: NCHCN 13:38
DX: Z00.00 Encounter for general adult medical examination without abnormal findings (principal)
CPT/HCPCS: 80053; 80061; 85027; 83036

== ENCOUNTER 2025-08-04 11:02 | Outpatient (CLI) | payer MEDICAID, SELFPAY | END 2025-08-04 11:03 | disposition home or self-care (01) | DX: R00.2 Palpitations (principal) | CPT/HCPCS: 93246 ==

== ENCOUNTER 2025-08-29 06:53 | Outpatient (CLI) | payer MEDICAID, SELFPAY ==
--- NOTE | 2025-08-29 12:40 | W.CARDEVENT ---
Date of service: 08/29/25 Time of Service: 12:40 Cardiac Event Recorder Referring Provider:: Suzi Vickers Indications:: Palpitations Cardiac Event Note: This is a cardiac event monitor. Patient was monitored for 11 days and 21 hours Rhythm throughout was sinus with average heart rate of 66. Minimum was 47, maximum 119 There were very very rare isolated atrial and ventricular ectopic beats. There was no atrial fibrillation, no high-grade AV block, no pauses greater than 3 seconds. There were no apparent patient symptoms
== END 2025-08-29 06:54 | disposition home or self-care (01) ==
LOC: CARDOPNVT 06:53
PROVIDERS: Visit Provider Internal Medicine Cardiovascular Disease
DX: R00.2 Palpitations (principal)
CPT/HCPCS: 93248

== ENCOUNTER 2025-09-25 07:56 | Outpatient (CLI) | payer MEDICAID, SELFPAY ==
--- NOTE | 2025-09-25 07:45 | RT.EKG_ITS ---
APPROVED REPORT Exam: Resting ECG Reason for Exam: cp, palpitations Patient Location: O HR:66 bpm ECG Measurements Heart Rate 66 AXIS MD 128 P -9 QRSd 99 QRS 62 QT 386 T 24 QTc 405 Conclusion Sinus rhythm...normal P axis, V-rate 50- 99 Low voltage, extremity leads...all extremity leads <0.5mV Otherwise normal ECG
== END 2025-09-25 07:57 | disposition home or self-care (01) ==
LOC: DI.CARD 07:57
PROVIDERS: Visit Provider Registered Nurse
DX: R07.2 Precordial pain (principal); R00.2 Palpitations
CPT/HCPCS: 93010